=== PATIENT | male | born 1975 | race Caucasian/White ===

== ENCOUNTER 2019-04-29 11:24 | Emergency (ER) | payer OTHER, SELFPAY ==
[2019-04-29 11:36] VITALS: BP 127/87; PULSE 79; RESP 18; TEMP 36.8; O2SAT 99
--- NOTE | 2019-04-29 11:50 | ED.GENADULT ---
HPI - General Adult General Chief complaint: Upper Respiratory Infection Stated complaint: sinus/cough Time Seen by Provider: 04/29/19 11:51 Source: patient and RN notes reviewed Mode of arrival: ambulatory Limitations: no limitations History of Present Illness HPI narrative: This is a 43 years old male presented office for evaluation of sinus congestion for 2-day. Associated with chest congestion this morning. He also reported cough with phlegm. Denies fever, abdominal pain, vomiting, diarrhea, or dizziness. His is sick with similar symptoms. He did receive influenza vaccine for this season. Related Data Home Medications Medication Instructions Recorded Confirmed ropinirole 0.5 mg HS 02/13/19 04/29/19 eszopiclone [Lunesta] 2 mg PO HS 04/29/19 04/29/19 sertraline [Zoloft] 50 mg PO DAILY 04/29/19 04/29/19 Allergies Allergy/AdvReac Type Severity Reaction Status Date / Time No Known Allergies Allergy Verified 04/29/19 11:43 Review of Systems Review of Systems: Narrative: CONSTITUTIONAL: Denies fever, chills, sweats. ENT: Reports head congestion, sore throat. Denies otalgia. CARDIOVASCULAR: Denies chest pain, palpitation RESPIRATORY: Denies dyspnea, wheezing. Reports cough GASTROINTESTINAL: Denies abdominal pain, nausea, vomiting, diarrhea. GENITOURINARY: Denies urinary symptoms or discharge SKIN: Denies rash MUSCULOSKELETAL: Denies acute back pain NEUROLOGIC: Denies lightheaded PMFSH Past Medical History Medical History No significant past medical history Surgical History Surgical History No significant past surgical history Family History Family History Other Family history of heart disease in male family member before age 55 Hypertension Social History Social History Smoking status: Former smoker Tobacco type: e-cigarettes Gender identity (if verbalized by the patient): Male Comments At time of signature, I agree with nursing past medical, surgical, social and family history. There is no relevant family history pertinent to the presenting complaint. Exam Narrative: Exam Narrative: GENERAL: This is a well-nourished, well-developed patient, in no apparent distress. EYES: Sclera clear/white. Vision is grossly intact. EARS: External ears normal, auditory canals clear and without drainage, TMs normal without perforation. Hearing grossly intact. NOSE: External nose normal with no obvious nasal discharge, nares without redness, no rhinorrhea. THROAT: Mucous membranes moist, posterior pharynx pink with drainage NECK: Neck supple, non-tender without lymphadenopathy, masses or thyromegaly. CARDIOVASCULAR: Regular rate and rhythm without murmurs, gallops, or rubs. RESPIRATORY: Clear to auscultation. Breath sounds equal bilaterally. No wheezes, rales, or rhonchi. GASTROINTESTINAL: Abdomen soft, non-tender, nondistended. Bowel sounds are active. No guarding. SKIN: warm, intact with no suspicious lesions or rash, good texture and turgor. NEURO: awake, alert, and oriented to person, place and time. There were no obvious focal neurologic abnormalities. Steady gait Alexandrea Coma Scale Eye Opening: Spontaneous 4 Alexandrea Coma Scale Motor: Obeys Commands 6 Alexandrea Coma Scale Verbal: Oriented 5 Course Vital Signs Vital signs: Vital Signs Temperature 98.2 F 04/29/19 11:36 Pulse Rate 79 04/29/19 11:36 Respiratory Rate 18 04/29/19 11:36 Blood Pressure 127/87 04/29/19 11:36 Pulse Oximetry 99 04/29/19 11:36 Temperature 98.2 F 04/29/19 11:36 Pulse Rate 79 04/29/19 11:36 Respiratory Rate 18 04/29/19 11:36 Blood Pressure 127/87 04/29/19 11:36 Pulse Oximetry 99 04/29/19 11:36 Medical Decision Making MDM Narrative Medical decision making n
== END 2019-04-29 12:05 | disposition home or self-care (01) ==
PROVIDERS: Emergency Provider Nurse Practitioner
DX: J06.9 Acute upper respiratory infection, unspecified (principal); Z87.891 Personal history of nicotine dependence; G25.81 Restless legs syndrome; G47.30 Sleep apnea, unspecified; F32.9 Major depressive disorder, single episode, unspecified
CPT/HCPCS: 87081; 87880; 99213; G0463

== ENCOUNTER 2021-02-19 17:46 | Emergency (ER) | payer OTHER, SELFPAY ==
[2021-02-19 18:19] VITALS: BP 132/83; PULSE 95; RESP 18; TEMP 37.1; O2SAT 99
--- NOTE | 2021-02-19 18:56 | ED.URI ---
HPI - URI/Sore Throat General Chief Complaint: Upper Respiratory Infection Stated Complaint: . Time Seen by Provider: 02/19/21 18:35 Source: patient and RN notes reviewed Mode of arrival: ambulatory Limitations: no limitations History of Present Illness HPI Narrative: Patient presents today complaining of sore throat, headache, body aches, chills, cough since yesterday. Denies shortness of breath or fever. Currently rates pain 6/10 and has tried no medication for symptoms prior to arrival. Denies any history of asthma or COPD. MD elicited complaint: cough and sore throat Related Data Home Medications Medication Instructions Recorded Confirmed ropinirole 0.5 mg HS 02/13/19 02/19/21 sertraline [Zoloft] 50 mg PO DAILY 04/29/19 02/19/21 Ambien 02/19/21 Allergies Allergy/AdvReac Type Severity Reaction Status Date / Time No Known Allergies Allergy Verified 02/19/21 18:34 Review of Systems Review of Systems: CONSTITUTIONAL: Denies fever, or sweats.+ Chills, body aches EYES: Denies visual changes, redness, or discharge. ENT: Denies rhinorrhea, congestion, or otalgia.+ Sore throat CARDIOVASCULAR: Denies chest pain, palpitations, or edema. RESPIRATORY: Denies dyspnea.+ Cough GASTROINTESTINAL: Denies abdominal pain, nausea, vomiting, or diarrhea. GENITOURINARY: Denies dysuria or hematuria. SKIN: Denies rash, itching, or wounds. MUSCULOSKELETAL: Denies back pain, joint pain, or myalgia. NEUROLOGIC: Denies numbness, tingling, or weakness.+ Headache PSYCH: Denies depression or anxiety. [facility] Past Medical History Medical History (Updated 02/19/21 @ 19:01 by Jess Segal, JAMAL, BC) No significant past medical history Surgical History Surgical History No significant past surgical history Family History Family History Other Family history of heart disease in male family member before age 55 Hypertension Social History Social History Smoking status: Former smoker Tobacco type: e-cigarettes/vaping Gender identity (if verbalized by the patient): Male Comments At time of signature, I have reviewed and agree with nursing past medical, surgical, social and family history unless otherwise noted. Please see nursing chart for further information. There is no relevant family history pertinent to the presenting complaint Exam Narrative: GENERAL: Well-appearing, well-nourished, and in no acute distress. HEAD: Normocephalic, atraumatic. EYES: EOMI. No redness or drainage. Conjunctivae normal. ENT: Mucous membranes pink and moist. Nares congested with rhinorrhea. TMs normal bilaterally. Throat normal. Uvula midline. NECK: Normal AROM. Supple. No lymphadenopathy. CHEST: No respiratory distress. Clear to auscultation. HEART: Regular rate and rhythm. No murmur appreciated. Normal peripheral pulses. EXTREMITIES: Normal range of motion. No edema. SKIN: Warm, dry, no rash. Capillary refill normal. Normal skin turgor. NEURO: No focal deficits. Alert and oriented x3. Gait steady. PSYCH: Normal affect. No signs of depression or anxiety. Course Course Level of Care: Express Care Visit Vital Signs Vital signs: Vital Signs Temperature 98.8 F 02/19/21 18:19 Pulse Rate 95 02/19/21 18:19 Respiratory Rate 18 02/19/21 18:19 Blood Pressure 132/83 02/19/21 18:19 Pulse Oximetry 99 02/19/21 18:19 Temperature 98.8 F 02/19/21 18:19 Pulse Rate 95 02/19/21 18:19 Respiratory Rate 18 02/19/21 18:19 Blood Pressure 132/83 02/19/21 18:19 Pulse Oximetry 99 02/19/21 18:19 Reviewed. Pt has been instructed to follow up with his PCP regarding his elevated blood pressure today. MDM - URI/Sore Throat Differential Diagnosis Differential diagnosis: Likely upper respiratory infection, viral infection, pharyngi
== END 2021-02-19 19:06 | disposition home or self-care (01) ==
PROVIDERS: Emergency Provider Nurse Practitioner
DX: J02.9 Acute pharyngitis, unspecified (principal); J06.9 Acute upper respiratory infection, unspecified; F17.200 Nicotine dependence, unspecified, uncomplicated; G25.81 Restless legs syndrome; G47.30 Sleep apnea, unspecified; F32.A Depression, unspecified
CPT/HCPCS: 87081; 87880; 99213; G0463

== ENCOUNTER → 2021-02-23 03:46 | Outpatient (CLI) | payer OTHER, SELFPAY ==
[2021-02-23 22:11] LABS: SARS-CoV-2 RNA PCR Positive
== END ==
PROVIDERS: Visit Provider Nurse Practitioner
DX: U07.1 COVID-19 (principal)
CPT/HCPCS: C9803; U0003; U0005

== ENCOUNTER 2023-03-03 12:10 | Emergency (ER) | payer OTHER, SELFPAY ==
--- NOTE | ~2023-03-03 | XR_ITS ---
XR foot LT min 3V DATE: 03/03/2023 12:58 INDICATION: Dorsal first metatarsal pain TECHNIQUE: 4 views COMPARISON: None FINDINGS: Prominent posterior calcaneal enthesopathy. There are old healed fracture deformities of the third and fourth metatarsal shafts. No recent fracture or dislocation, periosteal reaction or bone destruction is detected. IMPRESSION: Old healed fractures of third and fourth metatarsal shafts Posterior calcaneal enthesopathy Mild osteoarthritis at first metatarsophalangeal joint. Reviewed, dictated and finalized at location B. ENTER FOREMAN
[2023-03-03 12:20] VITALS: BP 127/83; PULSE 90; RESP 18; TEMP 36.5; O2SAT 100
--- NOTE | 2023-03-03 12:37 | ED.EXTPRO ---
HPI - Extremity Problem General Chief complaint: Extremity Problem,Nontraumatic Stated complaint: PAIN ON TOP OF FOOT Time Seen by Provider: 03/03/23 12:36 Source: patient Mode of arrival: ambulatory Limitations: no limitations History of Present Illness HPI Narrative: 47 YEARS OLD WHITE MALE CAME TO THE EMERGENCY ROOM BY PRIVATE CAR WITH SHARP PAIN AT THE DORSAL SIDE AND MEDIAL SIDE OF THE LEFT FOOT NOTICED THIS MORNING AFTER GETTING OUT OF BED. HE DENIES ANY RECENT TRAUMA OR HISTORY OF GOUT. HE DENIES ANY FEVER, CHILLS, NAUSEA, VOMITING. Related Data Home Medications Medication Instructions Recorded Confirmed ropinirole 0.5 mg tablet 0.5 mg HS 02/13/19 02/19/21 sertraline 50 mg tablet (Zoloft) 50 mg PO DAILY 04/29/19 02/19/21 Ambien 02/19/21 Allergies Allergy/AdvReac Type Severity Reaction Status Date / Time No Known Allergies Allergy Verified 02/19/21 18:34 Review of Systems Review of Systems: All systems reviewed & are unremarkable except as noted in HPI and below PMFSH Past Medical History Medical History (Updated 03/03/23 @ 13:45 by Neema Carballo MD) No significant past medical history Surgical History Surgical History No significant past surgical history Family History Family History Other Family history of heart disease in male family member before age 55 Hypertension Social History Social History Smoking status: Former smoker Tobacco type: e-cigarettes/vaping Gender identity (if verbalized by the patient): Male Exam Narrative: GENERAL APPEARANCE: WELL-DEVELOPED, WELL-NOURISHED SKIN: NORMAL COLOR HEAD: NORMOCEPHALIC, NONTRAUMATIC EYES: CLEAR CONJUNCTIVA ENT: OROPHARYNX NORMAL, EARS NORMAL, NOSE NORMAL NECK: SUPPLE, NONTENDER CHEST AND RESPIRATORY: AIRWAY PATENT, NO RESPIRATORY DISTRESS, NO ACCESSORY MUSCLE USE HEART: REGULAR RATE/RHYTHM ABDOMEN: SOFT, NONTENDER, NO ORGANOMEGALY, QUIET BOWEL SOUNDS VASCULAR: NORMAL PERIPHERAL PULSES, NORMAL CAPILLARY REFILL. MUSCULOSKELETAL: LEFT FOOT EXAM SHOWED DIFFUSE TENDERNESS DORSALLY AND MEDIALLY, NO SWELLING, NO BRUISES, NO DEFORMITY. NEUROLOGIC: ALERT AND ORIENTED ?3, WET MIXER IS NORMAL TESTED, NO GROSS MOTOR DEFICIT Course Vital Signs Vital signs: Vital Signs Temperature 36.5 C 03/03/23 12:20 Pulse Rate 90 03/03/23 12:20 Respiratory Rate 18 03/03/23 12:20 Blood Pressure 127/83 03/03/23 12:20 Pulse Oximetry 100 03/03/23 12:20 Oxygen Delivery Room Air 03/03/23 12:20 Temperature 36.5 C 03/03/23 12:20 Pulse Rate 90 03/03/23 12:20 Respiratory Rate 18 03/03/23 12:20 Blood Pressure 127/83 03/03/23 12:20 Pulse Oximetry 100 03/03/23 12:20 Oxygen Delivery Room Air 03/03/23 12:20 MDM - Extremity (Nontraumatic) MDM Narrative Medical decision making narrative: PATIENT PRESENTS WITH PAIN AT THE DORSAL SIDE OF LEFT FOOT PHYSICAL EXAM SHOWED DIFFUSE TENDERNESS DORSALLY AND MEDIALLY X-RAY SHOWED NO ACUTE ABNORMALITIES DIAGNOSIS OSTEOARTHRITIS, TENDINITIS, . DISCHARGE ON INDOMETHACIN Differential Diagnosis Differential diagnosis: Likely other ( ABOVE) Imaging Data Radiologist's impression: Impressions Foot X-Ray 03/03/23 13:07 IMPRESSION: Old healed fractures of third and fourth metatarsal shafts Posterior calcaneal enthesopathy Mild osteoarthritis at first metatarsophalangeal joint. Critical Care Time Critical Care Time Critical Care Time: No Discharge Plan Discharge Clinical Impression: Enthesopathy of foot
== END 2023-03-03 14:01 | disposition home or self-care (01) ==
PROVIDERS: Emergency Provider Emergency Medicine
DX: M77.8 Other enthesopathies, not elsewhere classified (principal); Z87.891 Personal history of nicotine dependence
CPT/HCPCS: 73630; 99283

== ENCOUNTER 2023-04-16 08:49 | Emergency (ER) | payer OTHER, SELFPAY ==
--- NOTE | ~2023-04-16 | XR_ITS ---
EXAMINATION: XR foot LT min 3V DATE: 04/16/2023 09:14 INDICATION: Left foot pain. TECHNIQUE: 4 views of left foot were obtained. COMPARISON: Left foot radiographs 03/03/2023 FINDINGS: Bone alignment is normal. No acute fracture. There are old healed fractures of the diaphyse s of the third and fourth metatarsals. There is mild osteoarthritis of first metatarsophalangeal join t. There is an enthesophyte at posterior aspect of calcaneal tuberosity. There is forefoot soft tissu e swelling. IMPRESSION: 1. Mild osteoarthritis of first metatarsophalangeal joint. Reviewed, dictated and finalized at location A. PRODUCTION ADVISOR
[2023-04-16 08:59] VITALS: BP 142/95; PULSE 83; RESP 18; TEMP 36.6; O2SAT 100
--- NOTE | 2023-04-16 09:06 | ED.LOWEXIN ---
HPI - Extremity Injury (Lower) General Chief Complaint: Extremity Injury, Lower Stated Complaint: left foot pain Time Seen by Provider: 04/16/23 08:59 History of Present Illness HPI Narrative: 47-year-old male reports to the emergency department for evaluation for pain to the dorsum of his left foot x1 week. Patient was seen in our emergency department on 03/03/2023 for the same. He was diagnosed with tendinitis and sent home with indomethacin with improvement. States his symptoms resolved within a few days, however within the past week they have resumed. He has been taking naproxen and tramadol without improvement. He denies recent injury trauma, no fever, no history of gout. Related Data Home Medications Medication Instructions Recorded Confirmed ropinirole 0.5 mg tablet 0.5 mg HS 02/13/19 02/19/21 sertraline 50 mg tablet (Zoloft) 50 mg PO DAILY 04/29/19 02/19/21 Ambien 02/19/21 Allergies Allergy/AdvReac Type Severity Reaction Status Date / Time No Known Allergies Allergy Verified 04/16/23 09:03 Review of Systems Review of Systems: CONSTITUTIONAL: Denies fever, chills, or sweats. EYES: Denies visual changes, redness, or discharge. ENT: Denies rhinorrhea, congestion, sore throat, or otalgia. CARDIOVASCULAR: Denies chest pain, palpitations, or edema. RESPIRATORY: Denies cough or dyspnea. GASTROINTESTINAL: Denies abdominal pain, nausea, vomiting, or diarrhea. GENITOURINARY: Denies dysuria or hematuria. SKIN: Denies rash or itching. MUSCULOSKELETAL: See HPI NEUROLOGIC: Denies headache, numbness, or weakness. PSYCHIATRIC: Denies anxiety or depression. [facility] Past Medical History Medical History (Updated 04/16/23 @ 09:38 by Amie Fraser PA-C) No significant past medical history Surgical History Surgical History No significant past surgical history Family History Family History Other Family history of heart disease in male family member before age 55 Hypertension Social History Social History Smoking status: Former smoker Tobacco type: e-cigarettes/vaping Gender identity (if verbalized by the patient): Male Exam Narrative: GENERAL: Well-appearing, well-nourished, and in no acute distress. HEAD: Normocephalic, atraumatic. NECK: Supple. CHEST: Clear to auscultation. No respiratory distress. HEART: Regular rate and rhythm. No murmur heard. Normal peripheral pulses. EXTREMITIES: Left foot with tenderness over the 1st through 3rd metatarsals on the dorsal aspect of the foot with overlying mild edema and tenderness. No erythema or warmth, no skin compromise. Patient able to wiggle toes. DP pulse 2 +. Cap refill less than 2. No tenderness or edema to ankle or remainder of lower extremity. SKIN: Warm, dry, no rash. NEURO: No focal deficits. Alert and oriented x3 Course Vital Signs Vital signs: Vital Signs Temperature 97.9 F 04/16/23 08:59 Pulse Rate 83 04/16/23 08:59 Respiratory Rate 18 04/16/23 08:59 Blood Pressure 142/95 H 04/16/23 08:59 Pulse Oximetry 100 04/16/23 08:59 Oxygen Delivery Room Air 04/16/23 08:59 Temperature 97.9 F 04/16/23 08:59 Pulse Rate 83 04/16/23 08:59 Respiratory Rate 18 04/16/23 08:59 Blood Pressure 142/95 H 04/16/23 08:59 Pulse Oximetry 100 04/16/23 08:59 Oxygen Delivery Room Air 04/16/23 08:59 MDM - Extremity Injury (Lower) MDM Narrative Medical decision making narrative: 47-year-old male presents to the emergency department for pain to his left foot. See HPI for further history. Vitals stable. Exam is significant for the above. Last ER visit from 03/03/2023 reviewed. X-ray of the foot today shows mild osteoarthritis of the first metatarsophalangeal joint. Imaging and exam discussed. Will send patient home with Tray wrap
== END 2023-04-16 09:48 | disposition home or self-care (01) ==
PROVIDERS: Emergency Provider Physician Assistant
DX: M77.8 Other enthesopathies, not elsewhere classified (principal); Z87.891 Personal history of nicotine dependence; M19.072 Primary osteoarthritis, left ankle and foot
CPT/HCPCS: 73630; 99283

== ENCOUNTER 2024-12-13 17:33 | Emergency (ER) | payer OTHER, SELFPAY ==
[2024-12-13 17:38] VITALS: BP 116/82; PULSE 84; RESP 16; TEMP 36.2; O2SAT 99
--- OUTSIDE RECORDS SUMMARY | 2024-12-13 17:38 | XMS_ITS | Clinical Summary ---
Author Organization [facility] Address [address] [place] [id number] Care Team Providers Care Loss Prevention Coordinator Name Role Phone Shikha Sotomayor MD Primary Care Provider [phone] Social History Tobacco Use Types Packs/Day Years Used Date Smoking Tobacco: Never Assessed Sex and Gender Information Value Date Recorded Sex Assigned at Not on file Legal Sex Male 4:53 PM CDT Gender Identity Not on file Sexual Orientation Not on file Plan of Treatment Health Maintenance Due Date Last Done Comments Colorectal Cancer Screening Colonoscopy (10 Years) 1973 Annual Physical 1976 Hepatitis C 10/09/1991 DTaP, Tdap and Td Vaccines ( 1 - Tdap) 1992 Hepatitis B Vaccines (1 of 3 - 19+ 3-dose series) 1992 Pneumococcal Vaccine: 50+ Ye ars (1 of 1 - PCV) 10/09/2023 Zoster Vaccines (1 of 2) 10/09/2023 COVID-19 Vaccine (1 - 2024-2 6 season) 2024 Influenza Adult (#1) 2024 Hepatitis A Vaccines Aged Out No long er eligible based on patient's age to complete this topic Meningococcal B Vaccine Aged Out No l onger eligible based on patient's age to complete this topic Meningococcal Vaccine Aged Out No elan irina eligible based on patient's age to complete this topic RSV Immunizations Under 20 Months Aged Out No longer eligible based on patient's age to complete this topic Care Teams Loss Prevention Coordinator Relationship Specialty [place] [id number] [facility] [address] [place] [id number] PCP - General 07/17/12
[2024-12-13 18:01] LABS: EDCOVIDSCREEN Negative (Negative); EDINFLUASCREEN Negative (Negative); EDINFLUBSCREEN Negative (Negative)
--- NOTE | 2024-12-13 18:13 | ED.GENADULT ---
HPI - General Adult General Chief complaint: Upper Respiratory Infection Stated complaint: Sinus Infection Source: patient Mode of arrival: ambulatory Limitations: no limitations History of Present Illness HPI narrative: Patient presents for evaluation of sinus symptoms since yesterday. He reports mucopurulent discharge from the nares, frontal headache, maxillary facial pressure, and sinus congestion. No fever, chills, nausea, vomiting, diarrhea, or SOB. no recent sick contacts to his knowledge. He is not taking any medication to assist with the symptoms. he does vape. He has a history of recurrent sinusitis and this feels similar. Related Data Home Medications ?Medication ?Instructions ?Recorded ?Confirmed ?Last Taken ?Type ropinirole 0.5 mg tablet 0.5 mg HS 02/13/19 02/19/21 Unknown History sertraline 50 mg tablet (Zoloft) 50 mg PO DAILY 04/29/19 12/13/24 Unknown History Ambien 02/19/21 Unknown History Allergies Allergy/AdvReac Type Severity Reaction Status Date / Time No Known Allergies Allergy Verified 12/13/24 17:37 Review of Systems Review of Systems: CONSTITUTIONAL: Denies fever, chills, or sweats. EYES: Denies visual changes, redness, or discharge. ENT: Reports sinus congestion, mucopurulent discharge from the nares, mild sore throat and maxillary sinus pressure CARDIOVASCULAR: Denies chest pain, palpitations, or edema. RESPIRATORY: Reports cough. Denies dyspnea. GASTROINTESTINAL: Denies abdominal pain, nausea, vomiting, or diarrhea. GENITOURINARY: Denies dysuria or hematuria. SKIN: Denies rash or itching. MUSCULOSKELETAL: Denies back pain, joint pain, or myalgia. NEUROLOGIC: reports frontal headache. Denies numbness, dizziness, or weakness. PSYCHIATRIC: Denies anxiety or depression. [facility] Past Medical History Medical History No significant past medical history Surgical History Surgical History No significant past surgical history Family History Family History Other Family history of heart disease in male family member before age 55 Hypertension Social History Social History Smoking status: Current every day smoker Tobacco type: e-cigarettes/vaping Gender identity (if verbalized by the patient): Male Spiritual care concerns: No Exam Narrative: GENERAL: Well-appearing, well-nourished, and in no acute distress. HEAD: Normocephalic, atraumatic. EYES: PERRLA and EOMI. ENT: Nares clear, no rhinorrhea or epistaxis. Mucous membranes moist. Oropharynx without tonsillar hypertrophy exudate or other lesions. Bilateral TMs pearly stock nonbulging NECK: Supple. No adenopathy or masses. No carotid bruits or JVD CHEST: Clear to auscultation. No respiratory distress. No wheezes rales or rhonchi HEART: Regular rate and rhythm. No murmur heard. Normal peripheral pulses. ABDOMEN: Soft, nontender, nondistended, normal active bowel sounds. EXTREMITIES: Normal range of motion. No edema. SKIN: Warm, dry, no rash. NEURO: No focal deficits. Alert and oriented x3. PSYCH: Normal mood and affect. Course Course Emergency Course: This is a 49-year-old male who presented for evaluation of sick symptoms. COVID and influenza negative. He meets criteria for bacterial sinusitis based upon mucopurulent nature of his discharge. Will discharge with Augmentin. Increase hydration. [id number] agents for symptom management. Follow up with primary provider. Go to the ER for worsening symptoms. Patient in agreement with plan of care. Level of Care: Express Care Visit Vital Signs Vital signs: Vital Signs Temperature 36.2 C L 12/13/24 17:38 Pulse Rate 84 12/13/24 17:38 Respiratory Rate 16 12/13/24 17:38 Blood Pressure 116/82 12/13/24 17:38 Pulse Oximetry 99 12/13/24 17:38 Oxygen Delivery Room Air 12/13/24 17:38 Temperature 36.2 C L 12/13/24 17:38 Pulse Rate 84 12/13/24 17:38 Respiratory Rate 16 12/13/24 17:38 Blood Pressure 116/82 12/13/24 17:38 Pulse Oximetry 99 12/13/24 17:38 Oxygen Delivery Room Air 12/13/24 17:38 Medical Decision Making Vital Signs Vital Signs: Vital Signs Temperature 36.2 C L 12/13/24 17:38 Pulse Rate 84 12/13/24 17:38 Respiratory Rate 16 12/13/24 17:38 Blood Pressure 116/82 12/13/24 17:38 Pulse Oximetry 99 12/13/24 17:38 Oxygen Delivery Room Air 12/13/24 17:38 Temperature 36.2 C L 12/13/24 17:38 Pulse Rate 84 12/13/24 17:38 Respiratory Rate 16 12/13/24 17:38 Blood Pressure 116/82 12/13/24 17:38 Pulse Oximetry 99 12/13/24 17:38 Oxygen Delivery Room Air 12/13/24 17:38 Lab Data Labs: Lab Results 12/13/24 Range/Units 17:59 POC Influenza A Ag Negative (Negative) POC Influenza B Ag Negative (Negative) POC SARS CoV-2 Ag Negative (Negative) Discharge Plan Discharge Clinical Impression: Sinusitis Patient Disposition: Home Condition: Stable Instructions: Antibiotic Form, Sinusitis (ED) Patient Language: [place] Prescriptions: New amoxicillin-pot clavulanate 875-125 mg tablet 1 tablet PO Q12H Qty: 20 0RF No Action ropinirole 0.5 mg tablet 0.5 mg HS sertraline [Zoloft] 50 mg Tablet 50 mg PO DAILY Ambien indomethacin 75 mg capsule, extended release 75 mg PO BID Qty: 10 0RF indomethacin 50 mg capsule 50 mg PO BID Qty: 14 0RF Rx Instructions: administer with food or milk Follow-up/Referrals: [facility] [Primary Care Provider, Medical] Time of Disposition: 18:12
== END 2024-12-13 18:16 | disposition home or self-care (01) ==
PROVIDERS: Emergency Provider Nurse Practitioner
DX: J32.9 Chronic sinusitis, unspecified (principal); Z20.822 Contact with and (suspected) exposure to COVID-19; F17.290 Nicotine dependence, other tobacco product, uncomplicated
CPT/HCPCS: 87426; 87804; 99213; G0463